=== PATIENT | female | born 1960 | race Caucasian/White ===

== ENCOUNTER 2019-02-06 07:24 | Outpatient (CLI) | payer BC ==
--- NOTE | 2019-02-06 09:41 | ULT ---
ULTRASOUND THYROID: HISTORY: Pina's thyroiditis. COMPARISON: None. FINDINGS: Real-time, morfin scale, and color analysis of the thyroid was performed. The background echotexture is mildly heterogeneous. The isthmus measures 5 mm in AP dimension. The right lobe measures 5.2 x 1.2 x 1.9 cm. The left lobe measures 4.3 x 1.4 x 1.7 cm. Mild increased vascularity. There is a single solitary nodule inferior right pole of the thyroid which is isoechoic taller than w silas measuring 9 mm with ill-defined margins without echogenic foci. This is TIRADS 4: moderately luisito picious. Given its small size, no followup or aspiration is required. Small colloid cyst measuring 3 mm in the left lobe of the thyroid. IMPRESSION: 1. Mildly enlarged heterogeneous and hypervascular thyroid corresponding to the clinical history of Pina's thyroiditis. 2. No nodules requiring followup or aspiration per TIRADS criteria. POS: [facility]
== END 2019-02-06 07:25 | disposition home or self-care (01) ==
LOC: SCSULT 07:24
PROVIDERS: ATTEND Family Medicine
DX: E06.3 Autoimmune thyroiditis (principal)
CPT/HCPCS: 76536